=== PATIENT | female | born 1940 | race Caucasian/White ===

== ENCOUNTER 2019-04-22 11:59 | Inpatient (IN) | payer OTHER, MEDICARE ==
[~2019-04-22] VITALS: Ht 165.1 cm; Wt 157.3 kg
--- NOTE | ~2019-04-22 | O ---
[facility] [place] [address] OPERATIVE REPORT Name: THIEN NICK Room #: 434-P ADM IN M.R.#: [id number] Admission: 04/22/19 Attend Phys: Aleena Lopez Discharge: Date of : 44 Report #: [id number] THIS REPORT FOR: cc: FAM - Family physician unknown FAM - Family physician unknown Mike Davis MD ~ CC: WALE unknown Mike Lopez DATE OF SERVICE: 04/23/2019 PREOPERATIVE DIAGNOSES: Right intertrochanteric femur fracture, 2-part; morbid obesity. POSTOPERATIVE DIAGNOSES: Right intertrochanteric femur fracture, 2-part; morbid obesity. PROCEDURE PERFORMED: Intramedullary nailing of right intertrochanteric femur fracture. SURGEON: Mike Davis MD PIPELINER: Mckenna Perry PA-C ANESTHESIA: General per endotracheal tube. FLUIDS: 1100 mL crystalloid. ESTIMATED BLOOD LOSS: Approximately 150 mL. IMPLANTS UTILIZED: Synthes TFN nail with 110 mm helical blade and a 36 mm distal locking screw and an 11 x 170 mm TFNA implant. DESCRIPTION OF PROCEDURE: After proper identification of the patient and operative site in preoperative holding area, the operative site was signed by myself. Prophylactic antibiotics had been given. We reviewed the risks, benefits, alternatives and potential complications of her injury as well as treatment. We discussed potential implications of her morbid obesity as well. Son was at bedside. They wished to proceed with the above. She was brought back to the operative suite, and after induction of satisfactory general endotracheal anesthesia, she was carefully positioned on the Thayne fracture table. Limbs were stabilized with well-padded boot suspension. Legs were scissored. Fracture was reduced as best as possible and her pannus was intermittently held manually out of the way to aid in visualization of her hip fracture. Her morbid obesity lengthened the surgical time as well as required [facility] [address] [place] [address] OPERATIVE REPORT Name: THIEN NICK Room #: 434-P [facility] IN M.R.#: [id number] Admission: 04/22/19 Attend Phys: Aleena Lopez Discharge: Date of : 44 Report #: [id number] larger incisions to perform the procedure. Greater trochanter was palpated and verified with C-arm. An incision overlying the more proximal hip was planned. Skin was incised sharply and an insertion awl was placed about the tip of the greater troch where an intramedullary guidewire was then fed down the intramedullary aspect with good satisfactory position and intramedullary diameter revealed that an 11 mm nail would provide a good cortical fit. The short TFN implant was placed on the insertion handle, and due to her body habitus, the proximal incision had to be lengthened significantly just to get the U-shape of the insertion handle through the soft tissues to be able to implant the nail. Once it was satisfactorily seated, the soft tissues were carefully positioned around the insertion handle, which it was extruding beyond and initial attempt with a small skin incision and guidewire placement revealed that the guide pin would be too posterior in the femoral head and so it was unable due to the large soft tissue envelope to utilize the initial skin incision for the helical blade guide sleeve and a separate more posteriorly based incision was created and then the guide pin was positioned as best as possible within the femoral head while checking in the AP and lateral planes. Once this was satisfactorily positioned, outer cortex was reamed and then this was reamed to a depth of 110 mm for the helical blade. There was some mild displacement of the fracture site, and after the helical blade had been inserted, proximal locking screw was tightened, backed off 1/4 turn and then the compression aspect was applied. This helped reduce that. The overall position was satisfactory in AP and lateral planes. Next, a distal locking screw measuring 36 mm was inserted. There was no prominence of this. Next, final implant images were taken in multiple planes and the overall fracture reduction and hardware position were in satisfactory position. Wounds were then thoroughly irrigated with normal saline. Fascia was closed with ____ Vicryl for the deep subcutaneous tissues and a final skin closure was with 2-0 Vicryl and then fern. Vancomycin 1 g powder was utilized on the larger more proximally based incision. Sterile compressive dressing was applied. Qualified volunteer assistant utilized throughout the entire procedure to aid in patient's limb positioning, visualization and retraction of the soft tissues, instrument passage, closure, and dressing application. The patient will initially be placed on toe-touch weightbearing due to her morbid obesity. The patient resides in [place] and the patient's and her son's plan is to return to [place] as soon as she is able to. By: [id number] Mike Davis MD /jeevan
[2019-04-22 11:59] VITALS: BP 154/58
[2019-04-22 14:32] LABS: ABSOLUTE NEUTROPHILS 7.4 thou/uL (1.4-8.2); BASOPHILS 0.2 % (0.0-2.0); EOSINOPHILS 0.1 % (0.0-3.0); HEMATOCRIT 34.1 % (37.0-47.0); HEMOGLOBIN 11.5 gm/dL (12.0-15.0); LYMPHOCYTES 4.5 % (24.0-44.0); MCH 31.2 pg (26.0-34.0); MCHC 33.6 g/dL (28.0-37.0); MCV 92.8 fL (80.0-100.0); MONOCYTES 5.6 % (1.0-8.0); PLATELET COUNT 259 thou/uL (150-400); POLYS 89.6 % (36.0-66.0); RBC 3.67 mil/uL (4.20-5.00); RDW 14.7 % (10.5-14.5); WBC 8.2 thou/uL (4.0-11.0)
[2019-04-22 14:39] LABS: CALCIUM 8.8 mg/dL (8.5-10.1); CREATININE 0.9 mg/dL (0.6-1.0); POTASSIUM 3.4 mmol/L (3.5-5.1)
[2019-04-22] MEDS ORDERED: METFORMIN HCL500 M3 PO (14:59)
[2019-04-22] MEDS ORDERED: LEVOXYL125 MCG PO (15:00)
[2019-04-22 15:01] VITALS: BP 157/83
[2019-04-22] MEDS ORDERED: OMEPRAZOLE 20 M20 M1 PO (15:01)
[2019-04-22] MEDS ORDERED: PIOGLITAZONE15 MG (15:02)
[2019-04-22] MEDS ORDERED: NORVASC5 M1 PO (15:03)
[2019-04-22] MEDS ORDERED: LIPITOR40 MG PO (15:03)
[2019-04-22 15:04] VITALS: BP 157/83
[2019-04-22] MEDS ORDERED: TOPROL XL25 MG PO (15:04)
[2019-04-22] MEDS ORDERED: GUAIFENESIN DM1 EACH PO (15:06)
[2019-04-22] MEDS ORDERED: ASPIRIN325 PO (15:08)
[2019-04-22] MEDS ORDERED: BENAZEPRIL HCL20 MG PO (15:08)
[2019-04-22 15:10] VITALS: BP 154/61
[2019-04-22] MEDS ORDERED: CORTIZONE-10 1%28 GM TOP (15:10)
[2019-04-22 15:22] LABS: TSH 1.253 uIU/mL (0.358-3.740)
--- NOTE | 2019-04-22 17:28 | EKG ---
[facility] [place] [address] ELECTROCARDIOGRAM REPORT Name: THIEN NICK Room #: 434-P ADM IN M.R.#: [id number] Admission: 04/22/19 Attend Phys: Aleena Lopez Discharge: Date of : 44 Report #: [id number] THIS REPORT FOR: cc: FAM - Family physician unknown FAM - Family physician unknown Nimesh Diop MD [facility] ~ THIS REPORT FOR: //name// [facility] ED Test Date: 2019-04-22 Test Time: 14:52:32 Pat Name: THIEN NICK Department: Room: [facility] Gender: F Spring Setter: : 1940 Requested By: Meena Mathis Order Number: [id number] MD: Nimesh Diop Measurements Intervals [place] Rate: 114 P: -29 NJ: 155 QRS: -23 QRSD: 96 T: 59 QT: 351 QTc: 484 Interpretive Statements Sinus tachycardia Atrial premature complex Low voltage, precordial leads Left ventricular hypertrophy No previous ECG available for comparison Electronically Signed On 04-22-2019 17:27:09 BASE WAD OPERATOR ADJUSTER by Nimesh Diop [email or web address] <ELECTRONICALLY SIGNED> By: Nimesh Diop MD, FAC 04/22/19 1727 1452 1452 Nimesh Diop MD, [facility] /EPI
[2019-04-22 18:17] VITALS: BP 156/74
--- NOTE | 2019-04-22 19:26 | NUR ---
PT ADMITTED TO THE FLOOR AT 1700 FROM THE ER. PT IS A&Ox4. HIP PRECAUTIONS DUE TO A HIP FRACTURE. PT IS HAVING SURGERY TOMORROW. NPO AFTER MIDNIGHT. DAVILA PLACED DUE TO IMMOBILITY. SCD'S IN PLACE. VITALS STABLE. PAIN MANAGED WITH PAIN MEDICATION. SON STAYING IN THE ROOM. ACHS. DINNER INSULIN HELD DUE TO PT NOT WANTING TO EAT DINNER. FALL PROTOCOLL IN PLACE. ADMISSION COMPLEETE. PT HERE VISITING SON FROM [place]. CALL LIGHT IN REACH.
--- NOTE | 2019-04-23 04:04 | NUR ---
ASSESSED AT START OF SHIFT PT A&OX4 WITH C/O OF HIP PAIN. MEDS GIVEN SEE EMAR. BLOOD SUGAR CHECKED 196 NO COVERAGE PT STATED NOT HUNGRY AND DOESN'T WANT TO EAT ADVICED PO FLUID INTAKE. IV INTACT AND FLUIDS INFUISING. PT NPO AT MIDNIGHT FOR SX IN THE AM. LOVENOX SHOT NOT GIVEN TONIGHT. SCD'S ON BLE. FOLLEY CATH INTACT AND FALL PREC IN PLACE. SON AT THE BEDSIDE FOR THE NIGHT WILL CONT WITH POC TILL EOS.
[2019-04-23 04:30] VITALS: BP 173/54
[2019-04-23 10:59] VITALS: BP 129/55
--- NOTE | 2019-04-23 12:34 | NUR ---
PT CARE ASSUMED AT 0700. A&0x4. PT WENT TO SURGERY AT 0740 AND RETURNED AT 1050. BP,RR,AND TEMP ARE STABLE. HR IS TACHY AT 111 AND 02 IS 93%ON 4L. ANDRE DRESSING INTACT. DAVILA IN PLACE WITH 450 OUTPUT ON PACU. DIET ADVANCED TO CARB CONTROLLED DUE TO PT TOLERATING CLEAR LIQUIDS. SCDS AND ICE PACK IN PLACE.
[2019-04-23 12:42] LABS: HEMATOCRIT 28.1 % (37.0-47.0); MCHC 32.7 g/dL (28.0-37.0); MCV 94.8 fL (80.0-100.0); RBC 2.97 mil/uL (4.20-5.00); RDW 15.2 % (10.5-14.5); WBC 9.6 thou/uL (4.0-11.0)
[2019-04-23 12:48] LABS: HEMOGLOBIN 9.2 gm/dL (12.0-15.0)
[2019-04-23 15:36] VITALS: BP 114/55
--- NOTE | 2019-04-23 15:49 | NUR ---
PT ADMITTED RELATED TO INTERTROCHANTERIC FEMUR FX FOLLOWING A GROUND LEVEL FALL. PT'S LAST NAME IS CAESAR IT'S PSOTA, CM CALLED AND NOTIFIED BITA. PT UNDERWENT SURGERY THIS THIS DAY. CM MET WITH PT AT BEDSIDE PT IS A&O X4. CM ROLE INTRODUCED. PT INDICATED SHE IS FROM [place] AND LIVES ALONE IN A DOUBLE WIDE MOBILE HOME THERE. SHE IS HERE IN [place] VISIT[place] HER SON. HE LIVES IN A MULTI LEVEL HOUSE WITH 2 STEPS TO ENTER THAN ALL NEEDS ON 1 LEVEL. PT INDICATED SHE HAD USED A CANE TO ASSIST WITH MOBILITY FLUX CORE WELDER BUT HAD OTHERWISE BEEN INDEPENDENT WITH ADLS. CARE TEAM INDICATED THAT PT IS TO BE TTWB ON RLE. CM SPOKE WITH PT ABOUT POSSIBLE POST ACUTE CARE STAY UPON DC FOR TRANSFER TRAINING. SHE IS AGREEABLE AND ASKED THAT CM FOLLOW UP WITH HER SON REGARDING OPTIONS. CM CALLED AND LEFT SON A VM. CM TO FOLLOW INDICATED WITH DC PLANNING.
[2019-04-23 19:10] VITALS: BP 131/54
--- NOTE | 2019-04-24 03:44 | NUR ---
ASSUMED PT CARE AT 1900. PM MEDS GIVEN, FLUIDS INFUSING PER ORDER. VSS. DAVILA PATENT WITH GOOD OUTPUT. DRESSING DRY AND INTACT. SON AT BEDSIDE. BOTH SLEEPING COMFORTABLY, NO OTHER SIGNIFICANT CHANGES.
[2019-04-24 04:43] VITALS: BP 120/60
[2019-04-24 06:00] LABS: HEMATOCRIT 25.2 % (37.0-47.0); HEMOGLOBIN 8.3 gm/dL (12.0-15.0); MCH 30.8 pg (26.0-34.0); MCHC 32.8 g/dL (28.0-37.0); RBC 2.68 mil/uL (4.20-5.00); RDW 15.1 % (10.5-14.5); WBC 8.6 thou/uL (4.0-11.0)
--- NOTE | 2019-04-24 13:29 | NUR ---
CM VISITED WITH PT AND SON AT BEDSIDE THIS AM. CM DISCUSSED REC OF POST ACUTE CARE STAY UPON DC. 5N INDICATED THEY WANTED TO ASSESS PT CM ALSO SPOKE WITH THEM ABOUT [facility], [facility], AND [facility]. CM PROVIDED THEM A SNF LIST FOR REVIEW IN CASE SKILLED IS MORE APPROPRIATE. CM TO FOLLOW UP AND ASSIST WITH AMTICIPATED DC TOMORROW.
--- NOTE | 2019-04-24 15:10 | NUR ---
Assumed care of pt at 0700. Pt a&ox4. Dressing c/d/i. Fluids discontinued. Pain controlled with prn pain meds. Toe touch weight bearing. Trying to wean off O2. Awaiting placement. Call light within reach. Family at bedside. Fall precautions in place.
--- NOTE | 2019-04-24 15:36 | NUR ---
PATIENT SEEN FOR REHAB CONSULT THIS DATE BY REBEL COLON NP WITH DR. GRAY. PATIENT IS A CANDIDATE FOR REHAB. ANTICIPATE PATIENT D/C FROM ACUTE HOSPITAL TO ACUTE REHAB ON 04/25/19. SOCAIL WORKER INFORMED. THANK YOU FOR THIS REFERRAL.
[2019-04-24 19:25] VITALS: BP 114/53
[2019-04-25 03:00] VITALS: BP 123/50
--- NOTE | 2019-04-25 03:41 | NUR ---
ASSUMED PT CARE AT 1900. PT REPORTING MINIMAL PAIN TONIGHT. DRESING DRY AND INTACT. SOME CONFUSION ABOUT TIME OF DAY AROUND 2100, THINKING IT WAS TIME FOR BREAKFAST. SON AT BEDSIDE NOW, MORE ORIENTED NOW. LOOSE COUGH, ABLE TO COUGH UP VERY SMALL AMOUNT OF SPUTUM. AWAITING D/C TO SNF. NO OTHER SIGNIFICANT CHANGES THIS EVENING.
[2019-04-25 06:09] LABS: HEMATOCRIT 22.8 % (37.0-47.0); HEMOGLOBIN 7.6 gm/dL (12.0-15.0); MCH 30.9 pg (26.0-34.0); MCHC 33.2 g/dL (28.0-37.0); MCV 93.1 fL (80.0-100.0); RBC 2.45 mil/uL (4.20-5.00); RDW 14.7 % (10.5-14.5); WBC 5.5 thou/uL (4.0-11.0)
[2019-04-25 07:19] VITALS: BP 110/42
[2019-04-25 08:46] VITALS: BP 110/42
[2019-04-25] MEDS ORDERED: SENNA-TIME S T1 EACH PO (10:19)
[2019-04-25] MEDS ORDERED: PERCOCET PO (10:20)
--- NOTE | 2019-04-25 14:46 | NUR ---
PT IS TO DISCHARGE TO 5N TODAY. PT AND SON ARE AWARE AND AGREEABLE. NO OTHER CM INTERVENTION INDICATED. CASE CLOSED.
--- NOTE | 2019-04-25 17:17 | NUR ---
VSS-AFEBRILE. PLACED ON 2LNC, SAO2 SLIGHTLY LOW WHEN MEDICATED AND SLEEPING. CHANGED RIGHT HIP DRESSING, SMALL AMOUNT OF SEROUSDRAINAGE ON OLD DRESSING. DALTON IN PLACE, NO S/S OF INFECTION. TURNED EVERY TWO HOURS FOR COMFORT, DAVILA REMAINS PER ORDERS FROM DR SILVA. TRANSFERRED TO FOR REHAB WITH ALL PERSONAL BELONGINGS, PAIN WELL CONTROLLED WITH PRESCRIBED IV AND PO MEDICATIONS.
== END 2019-04-25 16:54 | DRG 481 ==
LOC: ER 11:59 → EROBS 14:30 → 4S 14:30
PROVIDERS: Emergency Medicine; Physician Assistant Surgical; ADMIT Hospitalist
PROC: 0QH606Z Insertion of Intramedullary Internal Fixation Device into Right Upper Femur, Open Approach (ICD-10-PCS; principal; 2019-04-23)
DX: S72.141A Displaced intertrochanteric fracture of right femur, initial encounter for closed fracture (principal); J98.11 Atelectasis; D62 Acute posthemorrhagic anemia; Z68.43 Body mass index [BMI] 50.0-59.9, adult; L90.5 Scar conditions and fibrosis of skin; E11.9 Type 2 diabetes mellitus without complications; E78.5 Hyperlipidemia, unspecified; E03.9 Hypothyroidism, unspecified; I10 Essential (primary) hypertension; Z60.2 Problems related to living alone; E53.8 Deficiency of other specified B group vitamins; N39.3 Stress incontinence (female) (male); K59.00 Constipation, unspecified; K21.9 Gastro-esophageal reflux disease without esophagitis; G47.00 Insomnia, unspecified; E66.01 Morbid (severe) obesity due to excess calories; W01.0XXA Fall on same level from slipping, tripping and stumbling without subsequent striking against object, initial encounter; Y93.E1 Activity, personal bathing and showering; Y92.89 Other specified places as the place of occurrence of the external cause; Y99.8 Other external cause status; Z87.891 Personal history of nicotine dependence; Z79.82 Long term (current) use of aspirin; Z79.899 Other long term (current) drug therapy; Z47.89 Encounter for other orthopedic aftercare
CPT/HCPCS: 10195; 50010; 50101; 50133; 50386; 50635; 51412; 51538; 52304; 56525; 57092; 65130; 70005

== ENCOUNTER 2019-04-25 08:51 | Inpatient (IN) | payer OTHER, MEDICARE ==
[~2019-04-25] VITALS: Ht 165.1 cm; Wt 156.1 kg
--- NOTE | ~2019-04-25 | HC ---
[facility] [place] [address] CONSULTATION Name: THIEN BETANCOURT Room #: 514-P ADM IN M.R.#: [id number] Admission: 04/25/19 Attend Phys: Bruno Carr MD Discharge: Date of : 44 Report #: [id number] THIS REPORT FOR: cc: WALE - Family physician unknown WALE - Family physician unknown Clive Bledsoe PhD ~ CC: Bruno ECHEVARRIA unknown DATE OF SERVICE: 05/03/2019 NEUROBEHAVIORAL STATUS EXAM ATTENDING PHYSICIAN: Bruno Carr MD BENEFITS COORDINATOR: Clive Bledsoe, PhD CLINICAL PRESENTATION: The patient is a 78-year-old female admitted to the rehabilitation unit following a right intramedullary nailing on 04/23/2019. She was initially admitted to the hospital with right hip pain following an incident in her bathroom in which she fell and sustained a fracture. Her diagnosis on admission to the rehabilitation unit includes a right intertrochanteric fracture, status post intramedullary nail on 04/23/2019, toe touch weightbearing, obesity, premorbid urinary frequency, acute blood loss anemia, hypertension, hyperlipidemia, diabetes mellitus type 2 and fall. A complete description of her medical condition and history along with medications can be found in her medical record. Neuropsychological consultation was requested to provide assistance in the assessment of cognitive and emotional status and to provide recommendations and services. Prior to this most recent medical event, she was living alone in [place]. She was visiting her son in the [place] area when she sustained her fall. She has one child. The patient was employed at [employer] prior to her detention. Her last grade completed in school is 12. Her son indicates the patient to not had prior history of treatment for depression in the past. There is also no reported history of alcohol/drug abuse. She describes having been independent with instrumental activities of daily living. TECHNIQUES UTILIZED: Clinical interview, review of medical records, staff consultation and behavioral observation, family interview -- son, mini mental status exam 2 standard version, clock drawing and verbal fluency assessment. EXAMINATION FINDINGS: The patient was alert and cooperative during the assessment. She was able to accurately describe the reason for her hospitalization. There is no evidence of aphasia. Her thoughts are logical and goal oriented. There is no evidence of thought disorder. She does not report [facility] [address] [place] [address] CONSULTATION Name: CARY BETANCOURTMA Room #: 514-P [facility] IN M.R.#: [id number] Admission: 04/25/19 Attend Phys: Bruno Carr MD Discharge: Date of : 44 Report #: [id number] auditory or visual hallucinations. The patient appears uncomfortable and was quite fidgety and restless during the assessment. Her son indicates that she is functioning at a much higher level now that she had last few days. She had been confused and disoriented. Her confusion and delirium appears associated with oxycodone and a muscle relaxer that she was taking. She is more alert and engaged at this time. Symptoms are reported to include memory, sleep disturbance, depression, and a decreased appetite. However, the patient is morbidly obese. Her performance on the MMSE 2 brief version was extremely low with a raw score of 11/16. She was 3/3 for initial registration, 3/5 for orientation to time, 3/[address] and 2/3 for immediate recall of 3 items after a brief time delay and distraction. Her performance improved on the MMSE 2 standard version to a raw score of 24/30. She was 4/5 for serial sevens, 2/2 for naming, / for repetition, 04/29/2019 for comprehension. She could read and follow single command, the patient was able to write a sentence and copy a simple geometric design. Her performance was a T score of 39, which is at the 14th percentile and in the low average range. Overall, letter fluency was in the average range with a T score of 44 and percentile rank of 27. Category fluency was extremely low with a raw score of 15 and a T score of 22, which is less than 1%. Overall total fluency was a raw score of 35, T score of 30, percentile rank at 2. The patient was unable to draw a clock and set the hands at designated time. The patient is presenting with impaired cognition with deficits that include executive functioning and immediate recall. Her functioning appears to be improving. She had been treated for urinary tract infection along with narcotic for treatment of pain, which may have resulted in delirium that is now resolving. DIAGNOSTIC IMPRESSION: 1. Delirium -- resolving. 2. Neurocognitive disorder -- extent to be determined, likely in the mild to moderate range. 3. Adjustment disorder with depressed mood. RECOMMENDATIONS: The patient will likely require increased supervision to maintain safety with medical and financial along with nutritional management. As she continues to recover, her cognition as well as mood is likely to improve. Dietary consult may be of benefit to assist with nutritional support and identified program to assist her overall weight loss as well as address current variability in oral intake. [facility] [address] [place] [address] CONSULTATION Name: THIEN BETANCOURT Room #: 514-P ADM IN M.R.#: [id number] Admission: 04/25/19 Attend Phys: Bruno Carr MD Discharge: Date of : 44 Report #: [id number] Thank you very much for allowing me to provide the consultation on this patient. By: [id number] Clive Bledsoe, PhD /nt
[~2019-04-25 08:51] MED LIST: ASPIRIN325 PO; BENAZEPRIL HCL20 MG PO; CORTIZONE-10 1%28 GM TOP; GUAIFENESIN DM1 EACH PO; LEVOXYL125 MCG PO; LIPITOR40 MG PO; METFORMIN HCL500 M3 PO; NORVASC5 M1 PO; OMEPRAZOLE 20 M20 M1 PO; PIOGLITAZONE15 MG; TOPROL XL25 MG PO
[2019-04-25] MEDS ORDERED: SENNA-TIME S T1 EACH PO (10:19)
[2019-04-25] MEDS ORDERED: PERCOCET PO (10:20)
[2019-04-25 19:10] VITALS: BP 133/49
--- NOTE | 2019-04-25 19:19 | NUR ---
ARRIVED ON REHAB UNIT VIA BED AND 2 TRANSPORTER. AAOX4 VERY PLEASANT AND COOPERATIVE. ABDOMEN WITH LARGE PENDULOUS ABDOMEN WITH FOWL ORDER AND SLIGHTLY RED INTERDRY UNDER SKIN FOLDS. SACRAL AREA VERY EXCORIATED WITH SMALL OPEN AREA AT COCCYX - PHOTO TAKEN. SKIN CARE PROVIDED AND BARRIER CREAM APPLIED. SARAH NIEVES
--- NOTE | 2019-04-26 03:18 | NUR ---
TURNED TO SIDE, THIN LAYER OF MOISTURE BARRIER TO PERIRECTAL AREA AND TO DRESSING EDGE TAPE BURN. PAIN MED FOR HIP AND ALL-OVER ACHE BOTH 8/10, IS ASLEEP AT THIS TIME. DAVILA TO DD
[2019-04-26 06:19] LABS: HEMATOCRIT 21.5 % (37.0-47.0); HEMOGLOBIN 7.1 gm/dL (12.0-15.0); MCH 30.8 pg (26.0-34.0); MCV 93.4 fL (80.0-100.0); RBC 2.3 mil/uL (4.20-5.00); RDW 14.6 % (10.5-14.5); WBC 4.5 thou/uL (4.0-11.0)
[2019-04-26 06:28] LABS: CALCIUM 7.1 mg/dL (8.5-10.1); CREATININE 0.9 mg/dL (0.6-1.0); POTASSIUM 3.9 mmol/L (3.5-5.1)
[2019-04-26 08:00] VITALS: BP 126/63
--- NOTE | 2019-04-26 09:00 | NUR ---
ASSUME PT CARE AT 0700. PT SAID SHE DIDN'T SLEEP WELL LAST NIGHT. MAY NEEDS SLEEPING AID. AAOX4 VERY PLEASANT AND COOPERATIVE. ABDOMEN WITH LARGE PENDULOUS ABDOMEN WITH FOWL ORDER AND SLIGHTLY RED INTERDRY UNDER SKIN FOLDS. OT CAME TO GIVE PT SPONGE BATH THIS AM. RESSESSMENT PER CHART. LAST BM WAS 4 DAYS AGO. SENOKOT GIVEN SCHEDULE. COLACE PRN ALSO GIVEN ALONG WITH WARM PRUNE JUICE. BS HYPOACTIVE. RIGHT INCISION INTACT HAS SOME BLEEDING. DRESSING CHANGED. PT HAS SOME REDNESS AROUND. BARRIER CREAM APPLIED. PT DENIES PAIN, HOWEVER PRN TYLENOL GIVEN. SAT 92% ON RA. BUT DESAT WITH ACTIVITIES. O2 2L GIVEN FOR COMFORT. RESTING IN BED. WILL WORK WITH PHYSICAL THERAPY SOON. OFFERED SUPPORITIVE CARE. PT HAS FLAT AFFECT. OFFERED EMOTION SUPPORT AND ENCOURAGED PT TO VOICE HER NEEDS. MORNING MEDS GIVEN. LABS REVIEWED. HGB 7.1 PT REQUESTS FOR B12. WILL NOTIFY DOCTOR FOR SLEEPING AID AND B12, IRON SUPPLEMENT? AND MIRALAX PRN. FALL PRECAUTION IN PLACE.CHECK FREQUENTLY FOR NEEDS AND SAFETY. DAVILA CATH PATENT WITH YELLOW URINE. SACRAL AREA VERY EXCORIATED WITH SMALL OPEN AREA AT COCCYX. SKIN CARE PROVIDED AND BARRIER CREAM APPLIED. LOW AIR LOSS MATTRESS ORDER. ENCOURAGED PT TO TURN Q2HR. VSS, BS 165. PT REFUSES TO EAT BREAKFAST. HELD INSULIN ONLY GIVEN METFORMIN.WILL CONTINUE TO MONITOR.
[2019-04-26 19:55] VITALS: BP 137/52
--- NOTE | 2019-04-27 04:11 | NUR ---
assumed care at approx 1900 evening . pt sitting up in bed at change of shift. pt alert and oriented x4, appropriate and cooperative. pt took hs meds with water tolerating well. bernardo to dd with steve colored urine to bag. pt max assist with turning and repostioning. pt assist with bedpan to have 2 loose stools so far. pt appears to be sleeping soundly off and on with hourly rounding checks. bed alarm on and call light in reach. will continue to monitor.
[2019-04-27 05:29] LABS: HEMATOCRIT 20.6 % (37.0-47.0); MCH 31.6 pg (26.0-34.0); MCV 92.7 fL (80.0-100.0); RBC 2.22 mil/uL (4.20-5.00); RDW 14.8 % (10.5-14.5); WBC 4.3 thou/uL (4.0-11.0)
[2019-04-27 08:00] VITALS: BP 133/60
--- NOTE | 2019-04-27 15:22 | NUR ---
ASSUMED CARE AT 0700, NO ACUTE DISTRESS NOTED. VSS O2 ON 2L VIA NC. PT DENIES PAIN OR DISCOMFORT. MAX ASSIST X 2, TURN 2QH AND HOURLY ROUNDING IN PLACE. IV TO LAC FLUSHES EASILY. INCONTINENT OAT TIMES, DAVILA IN PLACE, CLEAR YELLOW URINE NOTED. BG ACHS, SS NEEDED. RESTING IN BED, CALL LIGHT WITHIN REACH, WILL CONTINUE TO MONITOR PER POC.
[2019-04-27 19:22] VITALS: BP 159/70
--- NOTE | 2019-04-28 04:07 | NUR ---
assumed care at approx 1900 evening 04/26. pt lying in bed at change of shift resting and son visiting at hs. pt assisted with bedpan and no bm just passing flatus. pt took hs meds with water tolerating well. low airloss pump added to bed and central office repairer supervisor notified about possible order for bariatric bed per family request. per central office repairer supervisor Jennifer will need to notify physician and jewelry manager in am to order. low airloss pump until am. son notified and aware. pt repositioned in bed. bernardo to dd with dark yellow urine to bag. 02 at 1L per n/c. pt appears to be sleeping soundly off and on. bed alarm on and call light in reach. will continue to monitor.
[2019-04-28 07:27] LABS: HEMATOCRIT 23.6 % (37.0-47.0); HEMOGLOBIN 7.9 gm/dL (12.0-15.0); MCHC 33.4 g/dL (28.0-37.0); MCV 92.9 fL (80.0-100.0); RBC 2.54 mil/uL (4.20-5.00); RDW 14.8 % (10.5-14.5); WBC 7.1 thou/uL (4.0-11.0)
[2019-04-28 08:05] VITALS: BP 141/65
--- NOTE | 2019-04-28 12:58 | NUR ---
Nutrition: pt seen due to poor intake consult. Admit to rehab unit S/P fall and right hip fracture, S/P IM nailing. PMH: HTN, HLD, DM2, acute blood loss anemia. Extreme class 3 obesity present however weight of 520# is error. Recent weights of 340# more accurate. BMI using this weight still 56. Pt reports not feeling too hungry since admitted (5 days ago on acute). Obtained food preferences and assured pt understood how to order meals if desired. PO on 04/26 100%/100%/5% of breakfast/lunch/dinner. : refuse/10%/75%. Highly variable trends. Pt refuses offer of supplements. Encouraged well rounded nutrition choices and adequate protein intake. Due to no intervention at present, place pt at low risk.
--- NOTE | 2019-04-28 14:08 | NUR ---
PATIENT HAS BEEN MOVED TO A LARGER ROOM NEAR THE NURSE'S STATION, WHICH ALLOWS MORE SPACE FOR HER EQUIPMENT NEEDS. NM ATTEMPTED TO CONTACT PT'S SON, SCOTT, BUT CALL WENT TO . MESSAGE LEFT ON WITH NEW ROOM # AND REASON FOR TRANSFER.
--- NOTE | 2019-04-28 14:23 | NUR ---
chart review, pt up in bed, o2 per nasal canula. pt little to no eye contacted during visit. mariluz is a & o x 3, and able to make her needs know. intro to cm, dcp, and team meeting. pt is here visiting her son and had a fall. independent prior to hospital. [place] in mobile home. no dme, no home oxygen. no past hh or rehab. will cont following as needed for dc needs.
--- NOTE | 2019-04-28 18:53 | NUR ---
ASSUMED CARE AT 0700, PT A&0 X 4 BUT CONFUSED AT TIMES. NO ACUTE DISTRESS NOTED, SON VISITED TODAY. PT MOVED FORM 505 TO 514 FOR BIGGER ROOM SPACE. VSS O2 ON 2L VIA NC. IV TO LAC, FLUSHES WELL. PT C/O R HIP PAIN, RELIEVED WITH PRN PERC. MAX ASSIST X 2 WITH TRANSFERS AND USES BEDPAN FOR BM, LAST BM 04/26/19, REFUSED SENNA TODAY. BG ACHS SS NEEDED. DAVILA IN PLACE, JORGE LUIS COLOR URINE NOTED, ENCOURAGED PT TO DRINK MORE FLUIDS. POOR APPETITE NOTED, PT DID NOT EAT MUCH OF MEALS, STATED THAT SHE DOESN'T HAVE MUCH OF AN APPETITE. SUPPLEMENT ADDED TO MEALS PER RD. RESTING IN BED, CALL LIGHT WITHIN REACH, WILL CONTINUE TO MONITOR PER POC.
[2019-04-28 19:20] VITALS: BP 161/65
--- NOTE | 2019-04-29 03:06 | NUR ---
TURNED SIDE TO SIDE AFTER Z-GUARD TO PERIRECTAL AREA INITIATED. DAVILA TO DEPENDENT DRAINAGE. TOLERATING PILLS WITH WATER. PAIN MEDS OFFERED, NONE SINCE 1699
[2019-04-29 08:00] VITALS: BP 121/57
--- NOTE | 2019-04-29 10:57 | NUR ---
PER ATOMIC PHYSICS PROFESSOR JERRICA SUAREZ, DURING ATOMIC PHYSICS PROFESSOR SESSION THIS MORNING, PT STATED TO HER, "IF THE PAIN GETS BAD ENOUGH, I WILL JUST SHOOT MYSELF." JERRICA VERBALIZED CONCERN AT THIS STATEMENT, AND NOTED THIS TO THE NM, WE ARE DISCUSSING DC PLANS AND LIVING SETTING OPTIONS AT TODAY. THIS INFORMATION WAS GIVEN TO THE PATIENT'S RN MAKAYLA, WELL TO DR. GRAY AND REBEL COLON, MARS.
--- NOTE | 2019-04-29 11:27 | NUR ---
ASSUMED CARE AT 0700. PATIENT IS ALERT AND ORIENTED X4, BUT FORGETFUL. PATIENT HAS FLAT AFFECT. PATIENT HAS 02 AT 2L PER N/C. CONTINUES ON RESPIRATORY TX. PATIENT IS TTWB ON THE RIGHT HIP. INCISIONS CONTINUE TO OOZE. DRESSING CHANGED TO RIGHT HIP. Z-GUARD TO HER BOTTOM. FALL AND SAFETY PROTOCOLS IN PLACE. UP TO THE DINING ROOM VIA W/C . DENIES ANY PAIN AT THIS TIME. DAVILA CATHETER CONTINUES TO DRAIN JORGE LUIS COLORED URINE. CONTINUES TO PROGRESS SLOWLY TOWARDS D/C GOALS. WILL CONTINUE TO MONITER.
--- NOTE | 2019-04-29 12:26 | NUR ---
team meeting, recommendation: re team, discuss with son and provided snf list choice and hh list choices. will cont following as needed for dc needs. still needing oxygen and is short of air with act.
[2019-04-29 19:40] VITALS: BP 157/75
--- NOTE | 2019-04-30 05:29 | NUR ---
TURNED SIDE TO SIDE, Z-GUARD AND MOISTURE BARRIER TO AREA SURROUNDING RECTUM. SLIDING SCALE INSULIN NOT GIVEN AT HS SINCE GLUCOSE ONLY 151 AND PATIENT NOT HUNGRY FOR SNACK OTHER THAN A BITE OF OUR SUGAR-FREE JELLO. FRUSTRATED AT NOT BEING ABLE TO GET OUT OF BED.
[2019-04-30 07:30] VITALS: BP 161/69
--- NOTE | 2019-04-30 07:49 | NUR ---
ASSUMED CARE AT 0700. PATIENT IS ALERT AND ORIENTED X4. PATIENT DARNELL. PATIENT HAS RIGHT HIP DRESSING THAT ARE DRY AND INTACT. LUNGS ARE CLEAR. ABD IS SOFT WITH BSX4. CONTINUES TO HAVE SMEARS OF STOOL. CONTINUES ON STOOL SOFTENERS AND SENOKOT PO. PATIENT HAS DAVILA TO DD, DRAINING DARK JORGE LUIS COLORED URINE. PATIENT ENCOURAGED TO INCREASE HER PO INTAKE. FALL AND SAFETY PROTOCOLS IN PLACE. DENIES PAIN AT THIS TIME. CONTINUES TO PROGRESS SLOWLY TOWARDS D/C GOALS. WILL CONTINUE TO MONITER.
[2019-04-30 19:56] VITALS: BP 122/55
--- NOTE | 2019-05-01 00:41 | NUR ---
PT ALERT AND ORIENTED X 4, CONFUSED. DAVILA PATENT DRAINING DARK YELLOW URINE WITH SEDIMENT. RIGHT HIP DRESSING CHANGED FOR LARGE AMT SEROSANGUINOUS DRAINAGE. INCISIONS TO RIGHT HIP INTACT WITH DALTON. BLOOD SUGAR 172 AT HS. INSULIN GIVEN ORDERED. 02 ON A5 2L PER NC CONT. PT DENIES PAIN OR DISCOMFORT. BED ALARM ON FOR SAFETY. PT CHECKED ON HOURLY ROUNDS.
[2019-05-01 08:00] VITALS: BP 132/66
[2019-05-01 18:34] LABS: URINE BLOOD 3+ (Negative); URINE COLOR YELLOW; URINE GLUCOSE-RANDOM* NEGATIVE (Negative); URINE KETONES TRACE (Negative); URINE PROTEIN (DIPSTICK) 1+ (Negative); URINE SPECIFIC GRAVITY >= 1.030 (1.005-1.035); URINE UROBILINOGEN 0.2 E.U./dl (0.2-1.0)
[2019-05-01 18:36] LABS: URINE LEUKOCYTES-REFLEX 2+ (Negative); URINE NITRITE-REFLEX POSITIVE (Negative)
[2019-05-01 18:37] LABS: ICTOTEST (BILI CONFIRMATORY) Negative (Negative); URINE BILIRUBIN NEGATIVE (Negative); URINE CLARITY HAZY
[2019-05-01 18:43] LABS: BACTERIA-REFLEX >30 Many /HPF (None Seen); SQUAMOUS 4-10 Moderate /LPF (0-3); URINE WBC-REFLEX >25 Many /HPF (0-5)
[2019-05-01 18:44] LABS: CASTS None Seen /LPF (None Seen); CRYSTALS None Seen /LPF (None Seen)
--- NOTE | 2019-05-01 20:32 | NUR ---
ASSUMED CARE AT 0700, PT A&O TO PERSON AND CONFUSED AT TIMES. NO ACUTE DISTRESS NOTED. VSS O2 ON 2L VIA NC. DRESSING CHANGED TO R HIP THIS MORNING. PT DENIED ANY PAIN OR DISCOMFORT. NO IV ACCESS NOTED. PT CONTINENT OF BM HAS MODERATE SOFT BROWN STOOL THIS MORNING, DAVILA IN PLACE, JORGE LUIS URINE WITH SEDIMENT NOTED. NOTIFIED PROVIDER ABOUT PT URINE ALONG WITH FAMILY CONCERN FOR INCREASED CONFUSION. UA ORDERED AND SAMPLE SENT TO LAB. ABX ORDERED FOR UTI. ALSO ENCOURAGED PT TO INREASE FLUID INTAKE, SUPERVISED PT WATER INTAKE DURING ROUNDS. BG ACHS, SS NEEDED, RESTING IN BED, CALL LIGHT WITHIN REACH, WILL CONTINUE TO MONITOR PER POC.
[2019-05-01 20:37] VITALS: BP 129/57
--- NOTE | 2019-05-02 00:53 | NUR ---
PT ALERT AND ORIENTED X 2, CONFUSED AT TIMES. DAVILA PATENT DRAINING SMALL AMT DARK YELLOW URINE. RIGHT HIP DRESSING CHANGED FOR LARGE AMT SEROSANGUINOUS DRAINAGE. 02 ON AT 2L PER NC CONT. PT HAS UTI. STARTED ON CEPHALEXIN AT HS. PT DENIES PAIN OR DISCOMFORT. BED ALARM ON FOR SAFETY. PT APPEARS TO BE SLEEPING ON HOURLY ROUNDS.
[2019-05-02 06:08] LABS: HEMATOCRIT 21.9 % (37.0-47.0); HEMOGLOBIN 7.2 gm/dL (12.0-15.0); MCH 30.7 pg (26.0-34.0); MCHC 32.7 g/dL (28.0-37.0); MCV 93.9 fL (80.0-100.0); RBC 2.33 mil/uL (4.20-5.00); RDW 15.1 % (10.5-14.5)
[2019-05-02 06:25] LABS: CALCIUM 7.8 mg/dL (8.5-10.1); CREATININE 0.9 mg/dL (0.6-1.0); POTASSIUM 3.8 mmol/L (3.5-5.1)
--- NOTE | 2019-05-02 15:47 | NUR ---
cm notified by bedside nurse that son mark wanted to speak with cm. cm called mark [phone], no answer left message and requested call back.
[2019-05-02 16:56] LABS: BE(vivo) -2.8 mmol/L (-2 to +3); HCO3 21.3 mmol/L (22.0-26.0); PCO2 33.5 mmHg (35.0-45.0); PO2 77.4 mmHg (80.0-100.0); pH 7.421 (7.360-7.450); sO2 95.8 % (92.0-98.0)
--- NOTE | 2019-05-02 17:28 | NUR ---
ASSUMED CARE OF PT AT 0700. PT ALERT AND ORIENTED TO SELF AND SITUATION. SON REPORTS SEEING INCREASED CONFUSION FROM PATIENT. PHYSICIAN NOTIFIED - IV ABX INITIATED. ABG's ORDERED. NARCOTICS D/C'd. PT UP W/ MAX ASSIST AND SLIDING BOARD. NO OTHER CHANGES TO REPORT. WILL CONT TO MONITOR.
[2019-05-02 20:24] VITALS: BP 118/45
--- NOTE | 2019-05-03 02:57 | NUR ---
PT CARE ASSUMED AT 1900 WITH PT IN BED AND APPEARED SLEEPING.PT WAS AROUSABLE AND TAKES MEDICATION WITH THIN LIQUID WHOLE.PT UP WITH MAX ASSUMED AND TRANSFER WITH SLIDEBOARD.PT APPEARED TO B EIN NO DISTRESS.LOLA D/C,WILL CONTINUE TO MONITOR PER POC
[2019-05-03 06:06] LABS: HEMATOCRIT 21.4 % (37.0-47.0); MCH 30.7 pg (26.0-34.0); MCHC 32.7 g/dL (28.0-37.0); MCV 93.8 fL (80.0-100.0); RBC 2.28 mil/uL (4.20-5.00); RDW 15.3 % (10.5-14.5); WBC 9.9 thou/uL (4.0-11.0)
[2019-05-03 06:26] LABS: ALBUMIN 2.5 g/dL (3.4-5.0); CALCIUM 7.6 mg/dL (8.5-10.1); CREATININE 1.1 mg/dL (0.6-1.0); PHOSPHORUS 4.2 mg/dL (2.5-4.9)
[2019-05-03 06:59] LABS: TSH 0.742 uIU/mL (0.358-3.740)
[2019-05-03 08:15] VITALS: BP 147/53
--- NOTE | 2019-05-03 19:22 | NUR ---
PT ALERT AND ORIENTED TIMES FOUR. VSS, PT DENIES PAIN. PT TOLERATES MEDS AND MEALS. PT UP IN CHAIR FOR MOST OF THE EVENING. RIGHT HIP DRESSING CHANGED. PT FAMILY AT BEDSIDE THIS AFTEDRNOON. WILL CONTINUE TO MONITOR.
[2019-05-03 19:50] VITALS: BP 136/47
[2019-05-03 19:55] VITALS: BP 145/65
--- NOTE | 2019-05-04 03:00 | NUR ---
Z-GUARD AND MOISTURE BARRIER TO BUTTOCKS AND BETWEEN. CATHETER OUT AND CANNOT VOID, STATES NO VOID ALL DAY WITH BLADDER SCAN = 375. ORDER TO INITIATE FLOMAX AND STRAIGHT CATH WITH RE-CHECK IN 6 HOURS. TURNING SIDE TO SIDE POSSIBLE IN NON-BARIATRIC BED. APPRECIATES SMALL PILLOW TO SUPPORT SMALL OF BACK
[2019-05-04 08:00] VITALS: BP 105/46
--- NOTE | 2019-05-04 17:18 | NUR ---
ASSUMED CARE AT 0700, PT A&O X 4, WITH BURST OF CONFUSION. SON AT BEDSIDE. VSS O2 ON 2L VIA NC. PT C/O R HIP PAIN RELIEVED WITH CHEMA TYLENOL. MAX ASSIST X 2 USING SLIDING BOARD. NO IV ACCESS, ABX NOW PO. INCONTINENT OF B&B, BM 05/02/19. BG ACHS, SS NEEDED. DRESSING TO R HIP CHANGED PER ORDERS. PT SITTING UP IN BED, CALL LIGHT WITHIN REACH, WILL CONTINUE TO MONITOR PER POC.
[2019-05-04 21:34] VITALS: BP 131/57
--- NOTE | 2019-05-05 05:09 | NUR ---
TURNED SIDE TO SIDE, ROLLS ON TO BEDPAN WITH 1-2 PERSON ASSIST. HAS VOIDED 4 OF 5 ATTEMPTS ON BEDPAN WITH MAX OF 200 CC JORGE LUIS URINE, 600 CC TOTAL, SCANT AMOUNT SEROUS DRAINAGE FROM STAPLE LINES.
--- NOTE | 2019-05-05 07:44 | HC ---
[facility] [place] [address] CONSULTATION Name: THIEN BETANCOURT Room #: 514-P ADM IN M.R.#: [id number] Admission: 04/25/19 Attend Phys: Bruno Carr MD Discharge: Date of : 44 Report #: [id number] THIS REPORT FOR: cc: WALE - Family physician unknown FAM - Family physician unknown Chente Alba MD ~ CC: Bruno ECHEVARRIA unknown DATE OF SERVICE: 04/28/2019 HISTORY OF PRESENT ILLNESS: This is a 78-year-old female patient who presented to the hospital with right hip pain following a fall. She had an intertrochanteric femur fracture and underwent intramedullary nailing on 04/23/2019. She has been admitted to the rehab floor, was noted to have some breakdown on the buttocks bilaterally, and I have been asked to see her with regard to wound care. PAST MEDICAL HISTORY: Significant for history of hypertension, type 2 diabetes mellitus, hyperlipidemia, recent hip fracture, and obesity. MEDICATIONS: Include metformin, Levoxyl, omeprazole, Actos, Norvasc, Lipitor, Toprol-XL, aspirin and cortisone. ALLERGIES: No known drug allergies. SOCIAL HISTORY: Negative for alcohol or tobacco use currently. She is a former smoker. FAMILY HISTORY: Noncontributory. REVIEW OF SYSTEMS: CONSTITUTIONAL: The patient denies fever, chills or weight loss. NEUROLOGICAL: The patient denies focal weakness, numbness or tingling. EYES: The patient denies visual changes, redness, or drainage. ENT: The patient denies earache, nasal drainage or sore throat. CARDIOVASCULAR: The patient denies chest pain, palpitations or diaphoresis. PULMONARY: The patient denies cough or shortness of breath. GASTROINTESTINAL: The patient denies nausea, vomiting or diarrhea. ORTHOPEDIC: The patient does complain of some mild pain in her right hip area. She also notes some discomfort in the gluteal region. Other systems in a 14-point review of systems are negative. PHYSICAL EXAMINATION: VITAL SIGNS: At this time include temperature 36.7, pulse 102, respiratory rate of 20, blood pressure 141/65. [facility] [address] [place] [address] CONSULTATION Name: THIEN BETANCOURT Room #: 514-P [facility] IN .R.#: [id number] Admission: 04/25/19 Attend Phys: Bruno Carr MD Discharge: Date of : 42 Report #: [id number] GENERAL: This is a chronically ill-appearing female patient who appears to be in minimal distress. HEENT: Head normocephalic. Nose and throat are clear. NECK: Supple. LUNGS: Clear. ABDOMEN: Obese, nontender. EXTREMITIES: Sacral, gluteal, ischial region bilaterally demonstrates some mild breakdown on the buttocks. This appears to be moisture-associated skin damage. No other evidence of ulcerations. NEUROLOGIC: The patient is alert and oriented and appropriate. LABORATORY DATA: Sodium 133, potassium 3.9, chloride 102, CO2 of 22, BUN 28, creatinine 0.9, glucose 130. White blood cell count 7.1, hemoglobin of 7.9, hematocrit 23.6. CLINICAL IMPRESSION: 1. Moisture-associated skin damage to bilateral buttocks. 2. Super morbid obesity. 3. Recent right intertrochanteric femur fracture, status post open reduction and internal fixation. 4. Type 2 diabetes mellitus. RECOMMENDATIONS: At this point in time, we will recommend zinc oxide based barrier cream to the gluteal regions, low air loss mattress, every 2 hour turning and positioning, ongoing aggressive physical therapy following the fracture repair, continuation of current medications. I appreciate being asked to see her in consultation. <ELECTRONICALLY SIGNED> By: Chente Alba MD 05/05/19 [id number] Chente Alba MD /nt
[2019-05-05 08:33] VITALS: BP 115/58
--- NOTE | 2019-05-05 12:59 | NUR ---
Nutrition followup: pt admitted with right interotrochanteric fracture, S/P IM nail. Issues related to constipation, narcotics D/C'ed. No BM doc since 04/30. On bowel regimen, also Fe+ supplement may worsen issue. Average intake of meals past several days is 50%. Pt feels appetite is fair. Orders meals and denies need for assist with this. RD encouraged protein foods first on trays. Glucerna offered BID with good intake documented. Pt denies this but states she is trying to drink them. Had one at bedside open she was working on. BG controlled. No weight loss over admit. BMI 57, extreme class 3 obesity. Will decrease supplement to once daily. Low risk.
--- NOTE | 2019-05-05 16:36 | NUR ---
ASSUMED CARE AT 0700, PT A&O X 3, NO ACUTE DISTRESS NOTED. VSS O2 ON 2L VIA NC. PT C/O R HIP PAIN, RELIEVED WITH CHEMA TYLENOL. MAX ASSIST X 2 WITH TRANSFERS. DRESSING TO R HIP IN PLACE, CLEAN DRY AND INTACT. NO IV ACCESS, PT ON PO ABX. INCONTINENT OF B&B, LAST BM 05/02/19. GIVEN ONE TIME DOSE MAG CITRATE WHICH PT IS STILL DRINKING. BG ACHS, SS NEEDED. BED IN LOWEST POSITION, CALL LIGHT WITHIN REACH, WILL CONTINUE TO MONITOR PER POC.
[2019-05-05 19:34] VITALS: BP 139/56
--- NOTE | 2019-05-06 02:53 | NUR ---
PT ALERT AND ORIENTED X 4 AT START OF SHIFT. CONFUSED DURING THE NIGHT. ATTEMPTED TO CLIMB OUT OF BED ONCE. 02 ON AT 2L PER NC CONT. RIGHT HIP DRESSING C/D/I. PT HAD STOOL IN EVENING. SACRUM RED, BARRIER CREAM APPLIED. PT DENIES PAIN OR DISCOMFORT. BED ALARM ON FOR SAFETY. PT CHECKED ON HOURLY ROUNDS.
[2019-05-06 06:05] LABS: ABSOLUTE NEUTROPHILS 5.9 thou/uL (1.4-8.2); BASOPHILS 0.4 % (0.0-2.0); EOSINOPHILS 1.1 % (0.0-3.0); HEMATOCRIT 22.1 % (37.0-47.0); HEMOGLOBIN 7.3 gm/dL (12.0-15.0); LYMPHOCYTES 24.3 % (24.0-44.0); MCV 93.9 fL (80.0-100.0); MONOCYTES 7.6 % (1.0-8.0); POLYS 66.6 % (36.0-66.0); RBC 2.35 mil/uL (4.20-5.00); RDW 15.6 % (10.5-14.5); WBC 8.9 thou/uL (4.0-11.0)
[2019-05-06 06:09] LABS: CALCIUM 8.3 mg/dL (8.5-10.1); CREATININE 0.9 mg/dL (0.6-1.0); MAGNESIUM 1.6 mg/dL (1.8-2.4)
[2019-05-06 06:13] LABS: PLATELET COUNT 419 thou/uL (150-400)
[2019-05-06 08:30] VITALS: BP 149/54
--- NOTE | 2019-05-06 11:53 | NUR ---
Received awake on bed. Due medications given as prescribed, able to swallow meds w/o diffciulty. On room air. Vital signs stable. With O2 at 2lpm via nasal cannula. On carb controlled diet- encouraged and assisted in eating and drinking; no nausea, no vomiting and no abdominal pain note. On blood sugar monitoring- taken and recorded accordingly. With SL at L DA. With dressing on R hip- fern intact, dressing changed today- no bleeding and no drainage noted. Participating and cooperative in therapies. Able to sit on the wheelchair during the dayshift, using bedside commode with sliding board and 2-3 assist. Falls bundle in place. MARS Angela discontinued O2, saturation rechecked: 97% on room air. Pt's son Manny called, update given- he said pt has been having confusion- MOSS GATHERER Coreen and MARS Mg informed re: confusion. To continue monitoring patient.
--- NOTE | 2019-05-06 14:17 | NUR ---
team meeting, recommendation, going for ct of head today. son cont to be concerned with mental state. 13th discuss dc option with son, hh vs snf.
--- NOTE | 2019-05-06 15:15 | NUR ---
WOUND CARE F/U; ROUNDING WITH DR GEORGE. THE BUTTOCKS WOUNDS ARE STABLE TODAY AND NO CHANGES ARE NECESARY. CONTINUE POC
[2019-05-06 15:47] VITALS: BP 138/48
[2019-05-06 19:25] VITALS: BP 120/46
--- NOTE | 2019-05-07 00:45 | NUR ---
PT ASSESSMENT DONE AND VSS. MEDS GIVEN AND WELL TOLERATED. FALL PRECAUTIONS IN PLACE. SON AT BEDSIDE IN EVENING. HOURLY ROUNDING DONE. CALL LIGHT IN REACH. WILL CONTINUE TO MONITOR.
[2019-05-07 09:31] VITALS: BP 101/52
--- NOTE | 2019-05-07 10:12 | NUR ---
ASSUMED CARE AT 0700, REPORTS SLEPT GOOD LAST NIGHT. DENIES PAIN. PT A&O X 4, FORGETFUL AT TIME. SON WAS HERE EARLIER. PLAN TO D/C ON 05/08. SAT 93% ON RA ENCOURAGED DEEP BREATH. MAX ASSIST X 2 USING SLIDING BOARD. NO IV ACCESS, ABX NOW PO. INCONTINENT OF B&B, REPORTS BM WAS YESTERDAY. CONTINUE TO BE ON SENNA DAILY. BG 96. B/P 101/52. NOTIFIED ERLINDA AND HELD HTN MEDS ORDERED. DRESSING TO R HIP CHANGED PER ORDERS. PT SITTING IN WC. CALL LIGHT WITHIN REACH, FALL PRECAUTION IN PLACE. CHECK FREQUENTLY FOR NEEDS AND SAFETY. OFFER TOILETING FREQUENTLY. OFFERED SUPPORTIVE CARE AND ENCOURAGEMENT. WILL CONTINUE TO MONITOR.
--- NOTE | 2019-05-07 10:29 | NUR ---
cm notified by ot that son was here and wanted to speak with cm about facility. cm provided another snf and senior blue book. " ok will [facility] but have to look for 2nd choice and let you know. what happens if don't have bed day she is to dc?"/mark. education that so time if they will next day and we dont have someone needed our room that day we can hold but usually have to go with 2nd choice that is why we ask for 1-3 choice " ok thanks for all your help"/mark. mariluz higgins working with physical therapy. will cont following as needed for dc needs.
[2019-05-07 17:31] LABS: FOLIC ACID 18.3 ng/mL (8.6-58.9); TSH 0.558 uIU/mL (0.358-3.740)
[2019-05-07 19:21] VITALS: BP 148/52
--- NOTE | 2019-05-08 01:21 | NUR ---
PT ALERT AND ORIENTED X 4. INCONT STOOL X 1 THIS EVENING. INCONT OF URINE AT TIMES. RIGHT HIP DRESSINGS C/D/I. SACRUM RED, Z GUARD APPLIED. PT DENIES PAIN OR DISCOMFORT. BED ALARM ON FOR SAFETY. PT APPEARS TO BE SLEEPING ON HOURLY ROUNDS. PT TALKS IN HER SLEEP, YELLS OUT FOR HELP AT TIMES BUT APPEARS TO BE SLEEPING.
[2019-05-08 08:00] VITALS: BP 140/41
--- NOTE | 2019-05-08 13:02 | NUR ---
Lying supine in bed without s/o distress. Alert and orientated x3, answering questions appropriately. Able to assist with turning. Breath sounds clear t/o, diminished in lower lobes. Regular HR auscultated. Color pale pink with brisk capillary refill and palpable peripheral pulses. Active bowel sounds over large, soft abdomen. Incisions per R hip dry and intact without s/o infections. Scabs approximately 1" from upper incision adhered to drsg, sanguious drainage, small amount. Incisions and wounds cleaned with NS and dressed with vaseline gauze and ABD drsg X 2, taped in place. 3 U insulin given per L upper arm before lunch to correct BG of 167. Denies pain. No saline lock found as stated in report.
--- NOTE | 2019-05-08 16:09 | NUR ---
son and son sig other here had question on how long she can stay her on acute rehab longer before she can increased wb status, and how pay for more care if needed down the road. education on copay rehab days, [facility] referral to be sent. and los days. cm reached out to tree [facility] and gabbie pires will visit later for assist with education. " she has no money and has 2nd insurance it is not medicaid."/mark.
[2019-05-08 19:09] VITALS: BP 124/64
--- NOTE | 2019-05-09 04:02 | NUR ---
PATIENT AOX4 MAKES NEEDS KNOWN. PATIENT DENIED PAIN OR DISCOMFORT. PATIENT IN BED ASLEEP AT THIS TIME BREATHING REGULAR AND UNLABOURED.
[2019-05-09 08:15] VITALS: BP 143/52
[2019-05-09 08:26] VITALS: BP 143/52
--- NOTE | 2019-05-09 09:20 | NUR ---
cm notified by [facility] that they can accept for rehab, needing pt ss #, wbs and op report. cm sent op report. wb is from 6-8 from surgery. cm visited with pt and she provided her ss # [phone]. will cont following as needed for dc need. [facility] referral to be sent and to call son mark who has question. will cont following as needed for dc needs.
[2019-05-09] MEDS ORDERED: FERREX 150 PLU1 EAC1 PO (10:34)
[2019-05-09] MEDS ORDERED: TYLENOL EXTRA500 MG PO (10:34)
[2019-05-09] MEDS ORDERED: PAIN & FEVER325 MG PO (10:34)
[2019-05-09] MEDS ORDERED: FLONASE 0.05%50 MCG NASAL (10:34)
[2019-05-09] MEDS ORDERED: CLARITIN10 MG PO (10:34)
[2019-05-09] MEDS ORDERED: FLOMAX0.4 MG PO (10:34)
[2019-05-09] MEDS ORDERED: LISINOPRIL2.5 MG PO (10:34)
[2019-05-09] MEDS ORDERED: NOVOLOG100 UNIT/1 SUBQ (10:36)
[2019-05-09] MEDS ORDERED: GLUCOPHAGE1000 MG PO (10:36)
--- NOTE | 2019-05-09 13:35 | H ---
[facility] [place] [address] HISTORY AND PHYSICAL Name: THIEN BETANCOURT Room #: 514-P ADM IN M.R.#: [id number] Admission: 04/25/19 Attend Phys: Bruno Carr MD Discharge: Date of : 42 Report #: [id number] THIS REPORT FOR: cc: WALE - Family physician unknown WALE - Family physician unknown Bruno Carr MD ~ CC: Bruno ECHEVARRIA unknown DATE OF SERVICE: 04/25/2019 HISTORY AND PHYSICAL/POST-ADMISSION PHYSICIAN EVALUATION HISTORY OF PRESENT ILLNESS: The patient is a 78-year-old female who originally presented to [facility] on 04/22/2019 with right hip pain following a fall in the bathroom. She was diagnosed with a right intertrochanteric femur fracture, was seen by Orthopedics and underwent a right intramedullary nailing on 04/23/2019 and is limited to toe touch weightbearing right lower extremity. She had some postoperative anemia. Initial hemoglobin 11.5, then drop down to 8.3. She was placed on O2 postop. She has significant obesity along with hypertension, hyperlipidemia and diabetes mellitus. She has now been admitted for acute in-hospital inpatient rehabilitation. PAST MEDICAL HISTORY: Includes history of hypertension, hyperlipidemia, diabetes mellitus type 2, and acute blood loss anemia. MEDICATIONS: Please see the full medication listing. ALLERGIES: No known drug allergies. HABITS: Former smoker. SOCIAL HISTORY: As noted in her admission documentation in the history and physical. She has been visiting her son. REVIEW OF SYSTEMS: No headache, dizziness, chest pain or shortness of breath. She does have a history of frequent urination. She has a history of obesity. PHYSICAL EXAMINATION: GENERAL: The patient is a significantly obese 78-year-old female in no obvious distress. The patient was seen yesterday. The patient was alert. She was pleasant. She is 5 feet 5 inches and 346 pounds. VITAL SIGNS: Last recorded temperature currently is 98.3, pulse 94, respirations 20, blood pressure 133/49. HEENT: Facies appeared symmetric. CHEST: Sounded clear to auscultation. [facility] [address] [place] [address] HISTORY AND PHYSICAL Name: THIEN BETANCOURT Room #: 514-P [facility] IN .R.#: [id number] Admission: 04/25/19 Attend Phys: Bruno Carr MD Discharge: Date of : 42 Report #: [id number] CARDIOVASCULAR: Regular rate and rhythm. ABDOMEN: Significant obesity. She has an indwelling Colón catheter in place. EXTREMITIES: Functional range of motion of the upper extremity strength is grade 4-/5, right hip is dressed. There is no focal calf swelling. She can move that left lower extremity, a grade 4-/5, right lower extremity distally is 4-/5. She has been max assist coming to stand prior to admission. ASSESSMENT: 1. Right intertrochanteric fracture, status post intramedullary nail on 04/23/2019, toe-touch weightbearing. 2. Obesity. 3. Premorbid urinary frequency. 4. Acute blood loss anemia. 5. Hypertension. 6. Hyperlipidemia. 7. Diabetes mellitus type 2. 8. Fall. PLAN: The patient has been admitted for acute in-hospital inpatient rehabilitation stay. The patient plans to stay with her son for as long as needed before returning back to [place]. Goal will be to work on transfers and wheelchair mobility. There are 2 steps in and the possibility of a ramp to be considered. From a postadmission physician evaluation perspective, there are no relevant changes since the preadmission screening. Please see the above review of prior and current medical and functional conditions and comorbidities. Please see the patient's previous and current functional status. As far as risk of complications, the patient has multiple medical comorbidities as noted above. Initial plan of care involves the interdisciplinary acute inpatient rehabilitation program. Measurable functional goals would be for the patient to become modified independent with transfers, mobility, ADLs, so she can return back to her prior living situation. We also have speech therapy evaluate. She did have some confusion during her postoperative period, which appears to be improving. Prognosis is reasonably good with estimated length of stay probably at least 2 weeks. Potential barriers would be her multiple medical comorbidities and decreased functional status. The patient meets diagnostic criteria for an acute in-hospital inpatient rehabilitation stay. She meets medical necessity criteria. We will have the proposal consultant physicians continue to follow. She does have the tolerance for therapies and has appropriate discharge goals back to the home setting. ADDENDUM: Nursing has indicated that the patient had a very excoriated sacral area with a small opening at the coccyx. Barrier cream has been applied. We will go ahead and includes orders for low air loss mattress, frequent turning, [facility] [address] [place] [address] HISTORY AND PHYSICAL Name: ASIATHIEN Room #: 514-P [facility] IN M.R.#: [id number] Admission: 04/25/19 Attend Phys: Bruno Carr MD Discharge: Date of : 42 Report #: [id number] and wound care nurse to assist. I agree with the documentation as noted in the history and physical by Coreen Lim, nurse practitioner. <ELECTRONICALLY SIGNED> By: Bruno Carr MD 05/09/19 1335 [id number] [id number] Bruno Carr MD /nt
--- NOTE | 2019-05-09 13:35 | PLAN ---
[facility] [place] [address] REHAB UNIT PLAN OF CARE Name: THIEN BETANCOURT Room #: 514-P ADM IN M.R.#: [id number] Admission: 04/25/19 Attend Phys: Bruno Carr MD Discharge: Date of : 42 Report #: [id number] THIS REPORT FOR: //name// CC: Bruno Carr [facility] unknown DATE OF SERVICE: 04/28/2019 PROGRESS NOTE/OVERALL PLAN OF CARE SUBJECTIVE: The patient is seen back today in followup. She is in no distress. Last recorded temperature 97.9, pulse 105, respirations 20, and blood pressure 159/70. She is alert. She has good sitting balance, sitting on the edge of the bed. Her right hip is dressed. She has no focal calf swelling. She is significantly obese. She is max assist of greater than 2 with attempting to try to stand. Lower body dressing is dependent. ASSESSMENT: 1. Right hip intertrochanteric fracture, status post intramedullary nail 02/21/2020, toe-touch weightbearing. 2. Obesity. 3. Premorbid urinary frequency. 4. Acute blood loss anemia. 5. Hypertension. 6. Hyperlipidemia. PLAN: The overall plan of care is based on the preadmission screen, post-admission physician evaluation and information garnered from therapy assessments. 1. Estimated length of stay is probably at least 2 weeks. 2. Medical prognosis is reasonably good. 3. Anticipated interventions includes the interdisciplinary acute inpatient rehabilitation program. 4. Anticipated functional outcomes would be for the patient to become modified independent with transfers, mobility, ADLs, so that she can hopefully return back to her prior living situation. 5. Discharge destination is back to the home setting. The son had indicated that she could stay with him as she is actually visiting from [place]. We will need to see how she progresses in therapies. The son lives there with his significant other. 6. Expected therapy by discipline includes PT and OT 1-1/2 hours per day each [address] [address] REHAB UNIT PLAN OF CARE Name: CARY BETANCOURTMA Room #: 514-P [facility] IN [facility]#: [id number] Admission: 04/25/19 Attend Phys: Bruno Carr MD Discharge: Date of : 42 Report #: [id number] five days a week throughout the duration of the acute inpatient rehabilitation stay. <ELECTRONICALLY SIGNED> By: Bruno Carr MD 05/09/19 1335 [id number] Bruno Carr MD /nt
--- NOTE | 2019-05-09 14:58 | NUR ---
PT DISCHARGING TODAY TO [facility] FAXED DC ORDERS/SUMMARY TO FACILITY SPOKE WITH FELICIA IN ADM SHE RECEIVED ORDERS AND ARRANGED TRANSPORT BY [facility] FOR 1430 TODAY. FAMILY NOTIFIED BY LEANN (CHEMO) OF DC AND TIME OF TRANSPORT. UNIT NOTIFIED AND CHART COPY PER US. RN TO CALL REPORT TO [phone].
--- NOTE | 2019-05-09 14:59 | NUR ---
ASSUMED CARE OF PT AT 0700. PT IS A&OX3, CONFUSED, AND VITAL SIGNS ARE STABLE. PT REPORTS PAIN IN RIGHT KNEE, MANAGED WITH PO MEDICATIONS AND ICE PACK. HR REGULAR, LUNG SOUNDS CLEAR/DIM IN ALL LOBES, BOWEL SOUNDS ACTIVE IN ALL QUADRANTS. ACCU CHECKS ACHS AND MANAGED WITH PO MEDICATIONS AND INSULIN. SON AT BEDSIDE THIS MORNING. ORDERS FOR DISCHARGE TODAY TO FACILITY. CALLED FACILITY WITH REPORT AT APPROX 1330. REVIEWED DISCHARGE INSTRUCTIONS WITH SON AND PATIENT, BOTH DENY QUESTIONS. TRANSPORT ARRIVED AT 1430 AND PT WAS ASSISTED INTO W/C AND LEFT UNIT AT 1500.
== END 2019-05-09 15:05 | DRG 536 ==
PROVIDERS: Hospitalist; Nurse Practitioner; Nurse Practitioner Family; Psychiatry & Neurology Neurology; ADMIT Physical Medicine & Rehabilitation
DX: S72.141A Displaced intertrochanteric fracture of right femur, initial encounter for closed fracture (principal); D62 Acute posthemorrhagic anemia; E66.9 Obesity, unspecified; I10 Essential (primary) hypertension; E11.9 Type 2 diabetes mellitus without complications; E78.5 Hyperlipidemia, unspecified; W18.39XA Other fall on same level, initial encounter; Y93.89 Activity, other specified; Y92.091 Bathroom in other non-institutional residence as the place of occurrence of the external cause; Y99.8 Other external cause status
CPT/HCPCS: 10112